=== PATIENT | male | born 1990 | race African-American/Black ===

== ENCOUNTER 2019-04-30 19:24 | Emergency (ER) | payer MEDICAID ==
[~2019-04-30] VITALS: Ht 180.3 cm; Wt 91.0 kg
[2019-04-30] MEDS ORDERED: HYDROCODONE/ACETAMINOPHEN 5/325MG TABLET PO ONE (21:30)
[2019-04-30] MEDS ORDERED: ONDANSETRON HCL 4MG/2ML INJ IV STA (23:39)
[2019-04-30] MEDS ORDERED: MORPHINE SULFATE 4 MG/ML CPJ (NOT FOR IM USE) IV STA (23:39)
[2019-04-30] MEDS ORDERED: CEFAZOLIN 1000MG PREMIX 50 ML IV ONE (23:45)
[2019-05-01 03:30] VITALS: BP 114/61
== END 2019-05-01 03:50 | disposition home or self-care (01) ==
LOC: ER 19:24
DX: S89.91XA Unspecified injury of right lower leg, initial encounter (principal); F12.10 Cannabis abuse, uncomplicated; V18.4XXA Pedal cycle driver injured in noncollision transport accident in traffic accident, initial encounter; Y93.55 Activity, bike riding; Y92.89 Other specified places as the place of occurrence of the external cause; Y99.8 Other external cause status
CPT/HCPCS: 73552; 73560; 73590; 93971; 96365; 96375; 99284; J0690; J2270; J2405